=== PATIENT | female | born 1945 | race Caucasian/White ===

== ENCOUNTER 2017-12-26 14:00 | Outpatient (RCR) | payer MEDICARE, BC, SELFPAY ==
[2017-10-11 13:20] VITALS: BP 118/78; O2SAT 92; BMI 33.6
--- NOTE | 2017-10-11 15:25 | CR.IEVALNOTE ---
CR Initial Assessment Report CR Cardiac Rehab Initial Assessment Start: 10/11/17 13:19 DX: CHF Freq: Status: Active Protocol: Document 10/11/17 13:20 ZE (Rec: 10/11/17 13:58 [facility] [id number]) Cardiac Rehabilitation Exercise Risk Risk High % 15-20 AICD No Pacemaker No Heart Rhythm ATRIAL FIB Right Arm Blood Pressure (90/60-120/80 mmHg) 118/78 Blood Pressure Method Manual Cuff/Auscultation Left Arm Blood Pressure (90/60-120/80 mmHg) 118/78 Blood Pressure Method Manual Cuff/Auscultation Apical Resting Heart Rate: 54 Pulse Rhythm: Irregular Respiratory Effort Non-Labored Pulse Oximetry (91-100 %) 92 Comment: CPAP AT NIGHT WITH OXYGEN Cardiac Rehabilitation Nutrition Evaluation Recent Lipid Blood Test No Lipids Comment WILL REQUEST FROM [place] History of Diabetes No Cardiac Rehabilitation Weight Management Plan Height 170.18 cm Weight 97.522 kg Body Mass Index (BMI) 33.6 Girth Measurement (in inches) (cm) 48 Patient Goal(s) Lose 1-2 of Girth Lose 5-10 lbs Body Weight BMI Goal of 19-25 Vitamins & Supplements No Use None/Never Nutrition Evaluation Referral to Diabetes Education No Nurse/Patient Discussion Yes Diet Discussion PORTION CONTROL Patient Following Diet Plan No Patient's Nutritional Goals HAS LOST 20# RECENTLY STATES PROBABLY WATER WEIGHT Education Primary Language DIVEHI Transcript Clerk Required No Visual Difficutly None Visual Assist Glasses Education on Intake Short of Breath Lightheaded or Dizzy Musculoskeletal Pain Hx Hypertension No Goal of BP <130/80 Yes Medications Reconciled Yes Any Additional Comment WILL TALK TO DR. ERNANDEZ TOMORROW RE LISINOPRIL. HAS A DRY COUGH . CR Psychosocial Evaluation Goal FEELS A LITTLE DISCOURAGED ABOUT HER LOW EF. LOST HER 7 YEARS AGO STILL EMOTIONAL WHEN SHE TALKS ABOUT HIM. Identifies Stressors TRYING TO LOSE WEIGHT Psych Consult No Discussion with Patient Yes Psychotropic Medications No PHQ9 Score 4 HQ Scoring Scale 0-4 = None Situation LIVES AT HOME WITH CAT Employment Status Retired Occupation / Employer USE TO WORK IN [employer] Ready for Change Number +46 CR Psychosocial Eval Continued Sternotomy Incision N/A Graft Site & Incision N/A Heart Murmur NEGATIVE Lung Sounds CLEAR Edema NONE Stress Management Class Yes Heart Disease & Emotion Film Yes Readiness Cooperative Motivated Patient's Story 4 YEARS AGO WENT TO MD ABOUT WEAKNESS AND EDEMA. FOUND SHE WAS IN HEART FAILURE AT THAT TIME. SEEMED TO GET BETTER THEN SUDDENLY SEVERE SOB FOUND TO HAVE A LOW EF ON ECHO. SEVERAL WEEKS LATER CONTINUED TO HAVE LOW EF OF 20% DESPITE MEDS Treatment Prescribed for Individual Yes Needs No Treatment Change Yes: Please Continue with Cardiopulmonary Rehabilitation as Ordered Date 10/11/17 Document 10/11/17 15:10 CFS (Rec: 10/11/17 15:24 CFS [id number]) Cardiac Rehabilitation Exercise Fall Risk History of Falling (Immediate or Yes Previous) Secondary Diagnosis (More Than 2 Medical Yes Diagnoses) Ambulatory Aid None/bed rest/nurse assist IV/Heparin Lock No Gait/Transferring Normal/bedrest/immobile Mental Status Oriented to own ability Score Total 40 Risk Level Moderate Fall Risk Action Implement Moderate Fall Risk Precautions Comment Will start with saucer under physioball seated next to railing. Assistive Devices None Walker Activity Status Index 4.40 Home Exercise Yes Mode Comment: NuStep Duration Comment: 30 min Frequency Comment: 4x/wk Symptoms: Back Pain Joint Pain Joint Stiffness Joint Swelling Body Alignment Posture Good Posture Ambulation Assistive Device None Orthotic/Prosthetic Devices or Brace: No Comment L Shoulder decrease ROM, Mid back and Bilat knees arthritis Exercise TM METS 2.63 Angina with Exercise no Exercise Tolerance Good CR Pre Exercise Evaluation Orientation Self Pulse Check HONG PRE Scale Exercise Safety Equipment Orientation Warm Up/Cool Down Patient Short-term Goal(s) Increase stamina by being able to do the TM for full 20 min continuously in 12 sessions Patient Printing Specialist Goal(s) Decrease SOB so that she is able to return to doing trail walking ie. Faiza Pichardo in 24 sessions CR Exercises Prescription Exercise Duration (minutes) 20 METs (resistance level) 3 Frequency 2x/wk RPE 12-14 Exercise Duration (minutes) 20 METs (resistance level) 3 Frequency 1x/wk RPE 12-14 Exercise Speed (rpm) 50 Exercise Duration (minutes) 20 Frequency 1x/wk RPE 12-14 Pounds 3 Number of Reps 12 Number of Sets 2 Frequency 1x/wk RPE 12-14 Band Resistance 3 Number of Reps 12 Number of Sets 1 Frequency 1x/wk RPE 12-4
--- NOTE | 2017-11-24 15:30 | CR.EDUC ---
Current Diagnoses Heart failure, unspecified (11/24/17) Past Medical History (Last Updated 11/15/17 @ 23:07 by KATY Grant) Afib (Acute) Central sleep apnea (Chronic) Congestive heart failure (CHF) (Chronic) Insomnia, persistent (Chronic) Obstructive sleep apnea of adult (Chronic) Snoring (Chronic) Provider Summary Visit Care Team Role Provider Type Matthew Trotter MD Attending Provider Physician Family Provider Primary Care Provider Specialty: Family Practice Address: [address] [place] [address] [place], [facility] Email: [email or web address] Education Report CR Education Start: 10/11/17 13:19 Freq: Status: Active Protocol: Document 10/13/17 14:19 CHERYL (Rec: 10/13/17 14:19 CHERYL [id number]) CR EDUCATION Education pt intro and hx review Document 10/17/17 15:13 JCP (Rec: 10/17/17 15:14 JCP [id number]) CR EDUCATION Education DISCUSSED WHAT METS ARE AND HOW THAT IMPACTS HER HEART.JOSSY Document 10/19/17 15:44 JCP (Rec: 10/19/17 15:44 JCP [id number]) CR EDUCATION Education ANTI INFLAMMATORY FOODS AND MEDITATION Document 10/26/17 15:07 JCP (Rec: 10/26/17 15:07 JCP [id number]) CR EDUCATION Education MET WITH TRUCK LOADER OVERHEAD CRANE [address] Document 11/02/17 16:18 JCP (Rec: 11/02/17 16:18 JCP [id number]) CR EDUCATION Education MET WITH JUAN PABLO NEIL ON METS Document 11/03/17 14:39 JCP (Rec: 11/03/17 14:40 JCP [id number]) CR EDUCATION Education HAD ECHO YESTERDAY. EF 35% UP FROM 25%. Document 11/16/17 16:09 JCP (Rec: 11/16/17 16:09 JCP [id number]) CR EDUCATION Education MET WITH JACK CAGE RD
[2017-12-26 15:54] VITALS: BP 106/58; RESP 18; BMI 30.5
== END 2017-12-27 10:57 ==
LOC: CAR 14:00
PROVIDERS: Family Provider Family Medicine; PCP Family Medicine; Visit Provider Family Medicine
DX: I50.22 Chronic systolic (congestive) heart failure (principal); I50.9 Heart failure, unspecified
CPT/HCPCS: 93798

== ENCOUNTER → 2020-05-24 13:35 | Outpatient (CLI) | payer MEDICARE, BC, SELFPAY ==
--- NOTE | 2020-05-24 | DI.MG.S_ITS ---
BILATERAL DIGITAL SCREENING MAMMOGRAM 3D/2D WITH CAD: 05/24/2020 CLINICAL: Routine screening. Family history of breast cancer. Comparison is made to exams dated: 08/11/2015 mammogram, 06/09/2017 mammogram, and 07/12/2018 mammogram - outside location. The tissue of both breasts is predominantly fatty. Current study was also evaluated with a Computer Aided Detection (CAD) system. No significant masses, calcifications, or other findings are seen in either breast. There has been no significant interval change. IMPRESSION: NEGATIVE There is no mammographic evidence of malignancy. A 1 year screening mammogram is recommended. This exam was interpreted at Station ID: [id number]. NOTE: For mammograms, a report in lay terms will be sent to the patient. Approximately 15% of breast malignancies will not be visualized mammographically. In the management of a palpable breast mass, a negative mammogram must not discourage biopsy of a clinically suspicious lesion. Electronically Signed By: Shayne Kenny M.D., jr/maris:05/26/2020 09:54:01 letter sent: Normal Exam ACR BI-RADS Category 1: Negative 3341F
== END ==
PROVIDERS: Family Provider Family Medicine; PCP Family Medicine; Referring Provider Family Medicine; Visit Provider Family Medicine
DX: Z12.31 Encounter for screening mammogram for malignant neoplasm of breast (principal); Z80.3 Family history of malignant neoplasm of breast
CPT/HCPCS: 77063; 77067

== ENCOUNTER → 2022-04-27 11:56 | Outpatient (CLI) | payer MEDICARE, BC, SELFPAY ==
--- NOTE | 2022-04-27 11:58 | DI.MG.S_ITS ---
BILATERAL DIGITAL SCREENING MAMMOGRAM 3D/2D WITH CAD: 04/27/2022 CLINICAL: Routine screening. Family history of breast cancer. Comparison is made to exams dated: 05/24/2020 mammogram - [facility], 07/12/2018 mammogram, and 06/09/2017 mammogram - outside location. There are scattered areas of fibroglandular density in both breasts (category b / 25%-50% glandular tissue). Current study was also evaluated with a Computer Aided Detection (CAD) system. There are benign calcifications in both breasts. No significant masses, calcifications, or other findings are seen in either breast. There has been no significant interval change. IMPRESSION: BENIGN There is no mammographic evidence of malignancy. A 1 year screening mammogram is recommended. Based on the Tyrer Cuzick model (a risk assessment model) the patient's lifetime risk is 5.5% and her 10 year risk is 4.9%. According to the ACR, ACS, and NCCN guidelines, an annual breast MRI exam along with mammogram is recommended if the patient's lifetime risk is 20% or greater. This exam was interpreted at Station ID: [id number]. NOTE: For mammograms, a report in lay terms will be sent to the patient. Approximately 15% of breast malignancies will not be visualized mammographically. In the management of a palpable breast mass, a negative mammogram must not discourage biopsy of a clinically suspicious lesion. Electronically Signed By: Diaz khan/maris:04/27/2022 18:56:59 letter sent: Normal Exam ACR BI-RADS Category 2: Benign Finding(s) 3342F
== END ==
PROVIDERS: Family Provider Family Medicine; PCP Family Medicine; Referring Provider Family Medicine; Visit Provider Family Medicine
DX: Z78.0 Asymptomatic menopausal state (principal); Z12.31 Encounter for screening mammogram for malignant neoplasm of breast; Z80.3 Family history of malignant neoplasm of breast; Z13.820 Encounter for screening for osteoporosis; M85.851 Other specified disorders of bone density and structure, right thigh
CPT/HCPCS: 77063; 77067; 77080; 77081

== ENCOUNTER → 2023-12-02 09:57 | Outpatient (CLI) | payer MEDICARE, BC, SELFPAY ==
--- NOTE | 2023-12-02 09:59 | DI.MG.S_ITS ---
BILATERAL DIGITAL SCREENING MAMMOGRAM 3D/2D WITH CAD: 12/02/2023 CLINICAL: Routine screening. Family history of breast cancer. Comparison is made to exams dated: 04/27/2022 mammogram, 05/24/[address] mammogram - [facility], and 07/12/2018 mammogram - outside location. There are scattered areas of fibroglandular density in both breasts (category b / 25%-50% glandular tissue). Current study was also evaluated with a Computer Aided Detection (CAD) system. There are benign calcifications in both breasts. No significant masses, calcifications, or other findings are seen in either breast. There has been no significant interval change. IMPRESSION: BENIGN There is no mammographic evidence of malignancy. A 1 year screening mammogram is recommended. Based on the Tyrer Cuzick model (a risk assessment model) the patient's lifetime risk is 4.6% and her 10 year risk is 0.0%. According to the ACR, ACS, and NCCN guidelines, an annual breast MRI exam along with mammogram is recommended if the patient's lifetime risk is 20% or greater. This exam was interpreted at Station ID: [id number]. NOTE: For mammograms, a report in lay terms will be sent to the patient. Approximately 15% of breast malignancies will not be visualized mammographically. In the management of a palpable breast mass, a negative mammogram must not discourage biopsy of a clinically suspicious lesion. Electronically Signed By: Lindsay campbell/maris:12/02/2023 14:51:55 letter sent: Normal Exam ACR BI-RADS Category 2: Benign Finding(s) 3342F
== END ==
PROVIDERS: Family Provider Family Medicine; PCP Family Medicine; Referring Provider Family Medicine; Visit Provider Family Medicine
DX: Z12.31 Encounter for screening mammogram for malignant neoplasm of breast (principal); Z80.3 Family history of malignant neoplasm of breast
CPT/HCPCS: 77063; 77067

== ENCOUNTER → 2023-12-15 08:03 | Outpatient (CLI) | payer MEDICARE, BC, SELFPAY ==
[2023-12-15 09:26] LABS: Add Manual Diff / Slide Review NO; Basophils Absolute Auto 0 /uL (0-100); Basophils Percent Auto 0.7 % (0-2); Eosinophils Absolute Auto 400 /uL (0-450); Eosinophils Percent Auto 6.5 % (2-4); Hematocrit 38.1 % (36-46); Hemoglobin 13.4 g/dL (12.0-16.0); Lymphocytes Absolute Auto 2100 /uL (1100-4500); Lymphocytes Percent Auto 32.8 % (25-40); Mean Corpuscular HGB Conc 35.3 % (30-36); Mean Corpuscular Hemoglobin 31.4 PG (26-34); Mean Corpuscular Volume 89.1 fL (80-100); Monocytes Absolute Auto 600 /uL (0-900); Monocytes Percent Auto 8.7 % (3-14); Neutrophils Absolute Auto 3300 /uL (1500-7000); Neutrophils Percent Auto 51.3 % (50-75); Platelet Count 182 X10^3/uL (150-400); Red Blood Cell Count 4.27 X10^6/uL (4.0-5.2); Red Cell Distribution Width 14.8 % (11.6-14.8); White Blood Cell Count 6.4 X10^3/uL (4.5-11.0)
[2023-12-15 10:37] LABS: BUN Creatinine Ratio 21.4 (6-22); Blood Urea Nitrogen 15 mg/dL (7-17); Calcium 9.3 mg/dL (8.4-10.2); Carbon Dioxide 25 mmol/L (22-32); Chloride 96 mmol/L (98-107); Estimated Glomerular Filt Rate > 60 mL/min (>60); Glucose 114 mg/dL (80-110); HEMOLYSIS < 15 (0-50); Potassium 4.7 mmol/L (3.4-5.1); Sodium 128 mmol/L (137-145)
== END ==
LOC: LAB 08:04
PROVIDERS: Family Provider Family Medicine; PCP Family Medicine; Referring Provider Internal Medicine; Visit Provider Internal Medicine
DX: I48.0 Paroxysmal atrial fibrillation (principal)
CPT/HCPCS: 36415; 80048; 85025

== ENCOUNTER → 2023-12-26 06:49 | Outpatient (CLI) | payer MEDICARE, BC, SELFPAY ==
--- NOTE | 2023-12-26 06:51 | DI.ECHO.S_ITS ---
[facility] : : [address] : : [place] : : [id number] : : Phone: [phone] Echocardiogram Report + + :Name: LIANA BLACKMAN Study Date: 12/26/2023 Height: 69 in : :[facility] ReadingLocation: Weight: 195 lb : : Gender: Female BSA: 2.0 m2 : :: 1945 Age: 78 yrs BP: 106/75 mmHg: :Reason For Study: CHRONIC SYSTOLIC HEART FAILURE : :Ordering Physician: JEN FLAHERTY Performed By: Shayne Chester : :Referring: JEN FLAHERTY : + + Interpretation Summary PT DECLINED CONTRAST 1. Normal LV contractility with EF > 55%. No WMA. Mild cLVH. Unable to comment on diastolic function. 2. Normal RV contractility. 3. Severe LAE. 4. No significant valvular abnormalities. 5. No obvious intracardiac shunts. 6. No obvious intracardiac masses/thrombi. 7. No hemodynamically significant pericardial effusion. 8. Low right sided filling pressures. 9. Mildly dilated ascending aorta and root without obvious disection Conclusion: Normal biventricular systolic function without significant valvular abnormalities. Procedure: A two-dimensional transthoracic echocardiogram with color flow and Doppler was performed. The study quality was technically adequate. There is no prior echocardiogram noted for this patient. The patient was in normal sinus rhythm during the exam. Left Ventricle: The left ventricle is normal in size. Left ventricular wall thickness is mildly increased. There is no ventricular septal defect visualized. The ejection fraction is estimated to be 55-60%. There are no focal wall motion abnormalities. Right Ventricle: The right ventricle is normal in size and function. The right ventricular systolic function is normal. Atria: The left atrium is severely dilated. Right atrial size is normal. There is no Doppler evidence for an atrial septal defect. Mitral Valve: The mitral valve is normal in structure and function. There is trace mitral regurgitation. Aortic Valve: The aortic valve is trileaflet. The aortic valve opens well. No aortic regurgitation is present. Tricuspid Valve: The tricuspid valve is normal in structure and function. There is trace tricuspid regurgitation. The right ventricular systolic pressure is estimated to be at least 20 mmHg based on an estimated right atrial pressure of 3 mm Hg. Pulmonic Valve: The pulmonic valve is not well seen, but is grossly normal. There is trace pulmonic regurgitation. Great Vessels: The aortic root is mildly dilated. The ascending aorta is mildly enlarged. The aortic arch is normal in size. The pulmonary artery is normal size. The IVC is of normal diameter and collapses greater than 50% with a sniff. This suggests a low right atrial pressure of 3 mm Hg. Pericardium/ Pleura There is no pericardial effusion. There is no pleural effusion. MMode/2D Measurements & Calculations LVIDd: 5.9 cm LVOT diam: 2.5 cm LVIDs: 4.0 cm Ao root diam: 3.8 cm FS: 31.4 % asc Aorta Diam: 3.9 cm EPSS: 1.3 cm Ao Arch Diam (Prox Trans): 2.5 cm IVSd: 1.1 cm LVPWd: 1.1 cm LV oneal. diameter/BSA (cm/m^2): 2.9 LV sys. diameter/BSA (cm/m^2): 2.0 LA A2 area: 29.0 cm2 RA long axis: 4.8 cm LA A4 area: 33.4 cm2 RA area: 15.5 cm2 LA length (vol): 7.1 cm RA vol: 42.4 ml LA vol: 115.4 ml RA : 20.8 ml/m2 LA vol index: 56.5 ml/m2 IVC diam: 1.5 cm RVD1 (basal): 3.5 cm RVD2 (mid): 2.6 cm TAPSE: 2.2 cm Doppler Measurements & Calculations Ao V2 max: 106.9 cm/sec LVOT Max Shelton: 53.4 cm/sec Ao V2 mean: 81.1 cm/sec LV V1 max P.1 mmHg Ao max P.6 mmHg LV V1 VTI: 13.2 cm Ao mean P.8 mmHg KACY(I,D): 2.7 cm2 Ao V2 VTI: 22.8 cm KACY(V,D): 2.4 cm2 sev ratio: 0.58 KACY indexed to BSA (cm^2/m^2): 1.3 MV E max shelton: 47.1 cm/sec TR max shelton: 205.4 cm/sec MV A max shelton: 34.9 cm/sec TR max P.9 mmHg MV E/A: 1.4 PA V2 max: 63.2 cm/sec Med Peak E' Shelton: 4.5 cm/sec PA V2 mean: 44.2 cm/sec E/E' med: 10.6 PA mean P.90 mmHg Lat Peak E' Shelton: 9.5 cm/sec PA pr(Accel): 22.5 mmHg E/E' lat: 5.0 E/e' average: 7.8 MV dec time: 0.37 sec SV(LVOT): 62.6 ml Reading Physician:
== END ==
LOC: ECHO 06:50
PROVIDERS: Family Provider Family Medicine; PCP Family Medicine; Referring Provider Internal Medicine; Visit Provider Internal Medicine
DX: I50.22 Chronic systolic (congestive) heart failure (principal); I77.810 Thoracic aortic ectasia; I77.89 Other specified disorders of arteries and arterioles
CPT/HCPCS: 93306

== ENCOUNTER 2024-05-31 06:56 | Inpatient (IN) | payer MEDICARE, BC, SELFPAY ==
[2024-05-31] VITALS (15 sets, daily range): BP systolic 96–128; BP diastolic 55–83; PULSE 61–109; RESP 14–17; TEMP 36–37; O2SAT 91–100; BMI 29.1
--- NOTE | 2024-05-31 07:25 | EKG_ITS ---
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
[2024-05-31 07:51] LABS: Add Manual Diff / Slide Review NO; Basophils Absolute Auto 0 /uL (0-100); Basophils Percent Auto 0.8 % (0-2); Eosinophils Absolute Auto 100 /uL (0-450); Eosinophils Percent Auto 2.3 % (2-4); Hemoglobin 13.5 g/dL (12.0-16.0); Lymphocytes Absolute Auto 1400 /uL (1100-4500); Lymphocytes Percent Auto 23.6 % (25-40); Mean Corpuscular HGB Conc 34.5 % (30-36); Mean Corpuscular Hemoglobin 30.3 PG (26-34); Mean Corpuscular Volume 87.9 fL (80-100); Monocytes Absolute Auto 300 /uL (0-900); Monocytes Percent Auto 4.8 % (3-14); Neutrophils Absolute Auto 4200 /uL (1500-7000); Neutrophils Percent Auto 68.5 % (50-75); Platelet Count 178 X10^3/uL (150-400); Red Blood Cell Count 4.44 X10^6/uL (4.0-5.2); Red Cell Distribution Width 14.8 % (11.6-14.8); White Blood Cell Count 6.1 X10^3/uL (4.5-11.0)
[2024-05-31 08:01] LABS: Alanine Aminotransferase 17 IU/L (<35); Albumin 4.4 g/dL (3.5-5.0); Albumin Globulin Ratio 1.8 (1.0-2.8); Alkaline Phosphatase 81 U/L (38-126); Aspartate Aminotransferase 22 IU/L (14-36); BUN Creatinine Ratio 23.5 (6-22); Bilirubin Total 1.2 mg/dL (0.2-1.3); Blood Urea Nitrogen 16 mg/dL (7-17); Calcium 9.4 mg/dL (8.4-10.2); Carbon Dioxide 25 mmol/L (22-32); Chloride 99 mmol/L (98-107); Estimated Glomerular Filt Rate > 60 mL/min (>60); Globulin 2.5 g/dL (1.7-4.1); Glucose 144 mg/dL (80-110); HEMOLYSIS < 15 (0-50); Lipase 114 U/L (23-300); Sodium 133 mmol/L (137-145); Total Protein 6.9 g/dL (6.3-8.2)
--- NOTE | 2024-05-31 08:04 | ED_ITS ---
HPI - Abdominal Pain General Chief Complaint: Abdominal Pain Stated Complaint: Severe stomach pain Time Seen by Provider: 05/31/24 07:47 Source: patient Mode of arrival: Ambulatory History of Present Illness HPI narrative: patient drove self here. Complains of sudden onset 7 hours ago right lower quadrant pain did have some upper abdominal pain but now has settled down to right lower quadrant pain. No prior history appendectomy. No prior history of kidney stones. Denies denies any chest pain. Pain radiates to the right lower back. No diaphoresis. No urinary complaints. Related Data Home Medications Medication Instructions Recorded Confirmed apixaban 5 mg tablet (Eliquis) 5 mg PO BID 11/15/17 05/31/24 spironolactone 25 mg tablet 25 mg PO DAILY 11/15/17 05/31/24 furosemide 80 mg tablet 40 mg PO DAILY 10/18/18 05/31/24 Resmed AirSense CPAP #1 ea 11/15/19 05/31/24 metformin 500 mg tablet 500 mg PO BID 04/28/21 05/31/24 metoprolol succinate 25 mg PO DAILY 05/31/24 05/31/24 omeprazole 40 mg capsule,delayed 40 mg PO BID 05/31/24 05/31/24 release rosuvastatin 5 mg PO DAILY 05/31/24 05/31/24 sacubitril 24 mg-valsartan 26 mg 1 tab PO DAILY 05/31/24 05/31/24 tablet (Entresto) semaglutide 0.25 mg or 0.5 mg (2 0.25 mg SUBCUT QWEEK 05/31/24 05/31/24 mg/3 mL) subcutaneous pen injector (Ozempic) Previous Rx's Medication Instructions Recorded Oxygen Concentrator #1 ea 10/03/17 zolpidem 5 mg tablet See Rx Instructions .Route 10/13/21 .COMPLEX #30 tabs Allergies Allergy/AdvReac Type Severity Reaction Status Date / Time No Known Drug Allergies Allergy Verified 05/31/24 07:28 Review of Systems Review of Systems Narrative: GENERAL: Negative chills, fatigue, malaise, fever, sweats. HEENT: Negative sinus pain, ear pain, sore throat RESPIRATORY: Negative dyspnea, cough CARDIOVASCULAR: Negative chest pain, palpitations GASTROINTESTINAL: Positivenausea, vomiting, abdominal pain : Negative dysuria, frequency, hematuria MUSCULOSKELETAL: Negative muscle or bony pain SKIN: Negative rash, skin lesions NEUROLOGIC: Negative weakness, numbness ROS Unobtainable: All systems reviewed & are unremarkable except as noted in HPI and below Patient History Medical History Afib Central sleep apnea Congestive heart failure (CHF) Hypnotic dependence with current use Obstructive sleep apnea of adult Primary insomnia Snoring Social History Smoking Status: Never smoker Smoking Status: Never smoker Exam Narrative Exam Narrative: GENERAL: in no distress, not toxic not dyspneic HEAD: Normocephalic. EYES: Pupils equal round ENT: Mucous membranes moist. NECK: Trachea midline. CARDIOVASCULAR: Regular rate and rhythm RESPIRATORY: Clear to auscultation. Breath sounds equal bilaterally. No wheezes, rales, or rhonchi. GASTROINTESTINAL: Abdomen soft, reproducible right lower quadrant tenderness but no McBurney point tenderness. No guarding rebound or peritoneal signs no pain out of portion exam. Bowel sounds are present. No CVA tenderness EXTREMITIES: No gross deformities. BACK: No flank tenderness. NEURO: AOx4. Clear speech SKIN: Warm and dry PSYCH: Not anxious, is cooperative Initial Vital Signs Initial Vital Signs: Vital Signs Temperature 97.8 F 05/31/24 07:20 Pulse Rate 74 05/31/24 07:20 Respiratory Rate 16 05/31/24 07:20 Blood Pressure 116/59 L 05/31/24 07:20 Pulse Oximetry 97 05/31/24 07:20 Oxygen Delivery Method Room Air 05/31/24 07:20 Course Orders Ordered: ED Orders 05/31/24 07:25 EKG-12 Lead Stat 05/31/24 07:32 Complete Blood Count AUTO DIFF Stat Comprehensive Metabolic Panel Stat Lipase Stat 05/31/24 08:03 CT abdomen pelvis w con Stat 05/31/24 08:45 Ictotest Urine Stat Bisacodyl (Bisacodyl 10 Mg Supp) 10 mg [place] DAILY PRN PRN Reason: Constipation Docusate Sodium (Docusate 100 Mg Capsule) 100 mg PO BID LUIS FERNANDO Last Admin: 05/31/24 12:00 Dose: 100 mg Documented By: ANA Dextrose/Sodium Chloride (Dextrose 5%-0.45% Ns) 1,000 mls @ 100 mls/hr IV CONT [facility] Last Admin: 05/31/24 12:00 Dose: 100 mls/hr Documented By: ANA Ketorolac Tromethamine (Ketorolac 30 Mg/Ml Vial) 15 mg IV Q6H PRN PRN Reason: Pain, Moderate (4-6) Stop: 06/05/24 13:53 Last Admin: 05/31/24 14:02 Dose: 15 mg Documented By: ANA Naloxone HCl (Naloxone 0.4 Mg/Ml Vial) 0.2 mg IV Q2MIN PRN PRN Reason: Opiate Reversal Ondansetron HCl (Ondansetron 4 Mg/2 Ml Inj) 4 mg IV NOW PRN PRN Reason: Nausea And Vomiting Last Admin: 05/31/24 09:55 Dose: 4 mg Documented By: [facility] Ondansetron HCl (Ondansetron 4 Mg Odt) 4 mg PO NOW PRN PRN Reason: Nausea And Vomiting Ondansetron HCl (Ondansetron 4 Mg/2 Ml Inj) 4 mg IV Q8HR PRN PRN Reason: Nausea And Vomiting Ondansetron HCl (Ondansetron 4 Mg Odt) 4 mg PO Q8HR PRN PRN Reason: Nausea And Vomiting Discontinued Medications Ketorolac Tromethamine (Ketorolac 30 Mg/Ml Vial) 15 mg IV Q6H [facility] Stop: 06/05/24 13:53 Morphine Sulfate (Morphine 4 Mg/Ml Inj) 4 mg IV NOW ONE Stop: 05/31/24 09:51 Last Admin: 05/31/24 09:54 Dose: 4 mg Documented By: [facility] Sodium Chloride (Sodium Chloride 0.9% Flush) 50 ml IV NOW ONE Stop: 05/31/24 08:34 Last Admin: 05/31/24 09:09 Dose: 50 ml Documented By: [facility] Vital Signs Vital signs: Vital Signs - 8 hr 05/31/24 07:20 Temperature 97.8 F Pulse Rate 74 Respiratory Rate 16 Blood Pressure 116/59 L Pulse Oximetry 97 Oxygen Delivery Method Room Air MDM - Abdominal Pain Lab Data 05/31/24 07:32 05/31/24 07:32 Labs: Lab Results 05/31/24 05/31/24 05/31/24 Range/Units 07:12 07:32 08:45 WBC 6.1 (4.5-11.0) X10^3/uL RBC 4.44 (4.0-5.2) X10^6/uL Hgb 13.5 (12.0-16.0) g/dL Hct 39.0 (36-46) % MCV 87.9 (80-100) fL MCH 30.3 (26-34) PG MCHC 34.5 (30-36) % RDW 14.8 (11.6-14.8) % Plt Count 178 (150-400) X10^3/uL Neut % (Auto) 68.5 (50-75) % Lymph % (Auto) 23.6 L (25-40) % [place] % (Auto) 4.8 (3-14) % Eos % (Auto) 2.3 (2-4) % Baso % (Auto) 0.8 (0-2) % Neut # (Auto) 4200 (2156-7228) /uL Lymph # (Auto) 1400 (6054-8977) /uL [place] # (Auto) 300 (0-900) /uL Eos # (Auto) 100 (0-450) /uL Baso # (Auto) 0 (0-100) /uL PT 14.4 H (9.4-12.5) SECONDS INR 1.3 (0.9-1.3) APTT 39 H (25.1-36.5) SECONDS Sodium 133 L (137-145) mmol/L Potassium 4.0 (3.4-5.1) mmol/L Chloride 99 (98-107) mmol/L Carbon Dioxide 25 (22-32) mmol/L BUN 16 (7-17) mg/dL Creatinine 0.68 (0.52-1.04) mg/dL Estimated GFR > 60 (>60) mL/min BUN/Creatinine Ratio 23.5 H (6-22) Glucose 144 H (80-110) mg/dL Calcium 9.4 (8.4-10.2) mg/dL Total Bilirubin 1.2 (0.2-1.3) mg/dL AST 22 (14-36) IU/L ALT 17 (<35) IU/L Alkaline Phosphatase 81 (38-126) U/L Total Protein 6.9 (6.3-8.2) g/dL Albumin 4.4 (3.5-5.0) g/dL Globulin 2.5 (1.7-4.1) g/dL Albumin/Globulin Ratio 1.8 (1.0-2.8) Lipase 114 (23-300) U/L Ur Bilirubin Confirm Negative (Negative) Point of care testing: Urine Dip Bedside Urine Glucose Negative Bedside Urine Bilirubin + 1 Bedside Urine Ketone - Negative Urine Specific [place] 1.010 Bedside Urine Occult Blood - Negative Bedside Urine pH 8.0 Bedside Urine Protein - Negative Bedside Urine Urobilinogen 1+ 2mg Bedside Urine Nitrite - Negative Bedside Urine Leukocytes - Negative Esterase Imaging Data CT scan - abdomen/pelvis: Radiologist's Impression: [address] [address] [address] Scan Report Signed Patient: Suri Zeng MR#: [id number] : 1945 Acct:[id number] Age/Sex: 78 / F Date of Service: 05/31/24 Loc: ED Accession Number: [id number] Procedure: CT abdomen pelvis w con Ordering Provider: Suhas Tamez MD PROCEDURE: CT ABDOMEN PELVIS W CON INDICATIONS: right side pain TECHNIQUE: After the administration of intravenous contrast, axial sections acquired from the lung bases to the pubic symphysis. Coronal and sagittal reformats were performed. For radiation dose reduction, the following was used: automated exposure control, adjustment of mA and/or kV according to patient size. COMPARISON: None. FINDINGS: Image quality: Diagnostic. Lower Chest: Mild bronchiectasis at the lung bases. There is mild streaky opacity which has the appearance of atelectasis. No pleural effusion. ABDOMEN: Liver: No solid mass. Gallbladder: No radiopaque gallstones or wall thickening. Biliary ducts: No biliary dilation. Pancreas: No ductal dilation. Spleen: Size is within normal limits. Adrenal Glands: No adrenal nodules. Kidneys and Ureters: No hydronephrosis. No solid mass. No complex renal cystic lesion which requires follow up. Stomach and Bowel: There are dilated loops of small bowel in the right lower quadrant. There is bowel wall thickening and adjacent mesenteric edema. Suspected transition point in the right lower quadrant, (3/46). There is fluid tracking in the pericolic gutter. There is trace fluid in the pelvis. There is no free air. The adjacent colon is not dilated. The appendix is partially visualized and is not dilated. There additional dilated loops of small bowel in the mid abdomen. The stomach is not dilated. The duodenum is not dilated. Diverticulosis. No diverticulitis. Peritoneum: Mild free fluid in the right abdomen and pelvis as described above. No pneumoperitoneum. Ventral Wall: No significant ventral hernia. Abdominal Nodes: No retroperitoneal or mesenteric adenopathy by size criteria. Vessels: Aorta and inferior vena cava are normal in size. PELVIS: Pelvic Organs: Anteverted uterus. Bladder: No bladder wall thickening. Pelvic Nodes: No enlarged lymph nodes. Miscellaneous: No inguinal hernias are seen. Bones: No aggressive osseous abnormality. There is anterolisthesis of L5 on S1 measuring 1.1 cm. Bilateral L5 pars defects. Scoliosis. Multilevel DDD. Mild T10 compression fracture. IMPRESSION: Small bowel obstruction with transition point suspected in the right lower quadrant. This could represent a closed loop bowel obstruction. There is mesenteric edema and free fluid. No pneumoperitoneum or abscess. Comment: Findings were discussed with Suhas Tamez at time of dictation. Dictated by: Be Artis M.D. on 05/31/2024 at 9:01 Approved by: Be Artis M.D. on 05/31/2024 at 9:16 [facility] Narrative Medical decision making narrative: patient drove self here. Complains of sudden onset 7 hours ago right lower quadrant pain did have some upper abdominal pain but now has settled down to right lower quadrant pain. No prior history appendectomy. No prior history of kidney stones. Denies denies any chest pain. Pain radiates to the right lower back. No diaphoresis. No urinary complaints. After history and exam , pain is controlled at this time. Patient does not want anything for pain. CBC CMP urinalysis CT abdomen pelvis ordered. Nausea is controlled. EKG [facility] Medical records reviewed: No recent visit for this complaint Differential considered: Includes but not limited to appendicitis pyelonephritis kidney stone ureteral stone bowel obstruction Lab Test results independently reviewed as above. Pertinent findings: WBC 6.1 hemoglobin 13.5 sodium 133 potassium 4.0 BUN 16 creatinine 0.68 glucose 144 AST 22 ALT 17 Independently reviewed EKG junctional rhythm rate [address] elevation or depression Imaging studies independently reviewed: CT abdomen pelvis small bowel obstruction noted Consultations: 9:17 a.m.. Spoke with General surgery, dr still, she will see patient in consult. Admit to primary care. 9:25 a.m.. Spoke with primary care on-call for Dr. Trotter, I spoke with Dr Emery, he will see patient for admission Treatments: normal saline, Zofran Re-evaluations: 9:20 a.m.. Updated patient results and diagnosis and she does understand need for admission for bowel obstruction, no NG tube indicated this time. Reviewed with general surgeon. Discussion: appropriate for admission for bowel obstruction general surgery has been contacted, primary care will admit. Diagnosis: Bowel obstruction Discharge Plan Departure Patient Disposition: Admitted as Observation Clinical Impression: Small bowel obstruction Admit Date/Time: 05/31/24 09:22 Admit Provider: Kenny Emery
[2024-05-31] MEDS: SODIUM CHLORIDE 0.9% FLUSH 50 ML IV (09:09)
[2024-05-31 09:19] LABS: Ictotest Urine Negative (Negative)
[2024-05-31 09:29] LABS: INR 1.3 (0.9-1.3); Prothrombin Time 14.4 SECONDS (9.4-12.5)
[2024-05-31 09:32] LABS: PTT Partial Thromboplastin Tim 39 SECONDS (25.1-36.5)
[2024-05-31] MEDS: MORPHINE 4 MG/ML INJ IV (09:54)
[2024-05-31] MEDS: ONDANSETRON 4 MG/2 ML INJ IV (09:55)
--- NOTE | 2024-05-31 11:04 | PM.HP.1 ---
History of Present Illness History of Present Illness Date Patient Seen: 05/31/24 Time Patient Seen: 10:30 Chief complaint: Severe stomach pain Narrative: CC: [facility] PT with new sudden symptoms of epigastric bandlike pain and soreness in RLQ today - seen in ED evaluated by surgery they think [facility] will admit keep NPO for now. Pain controlled with morphine from ED about 3/10 right now. Pt reports feels marion hungry. Vitals stable nothing to eat today remains NPO. Discussed with surgery Dr. Fischer they plan to take to OR tonight. [facility] Medical History Afib Central sleep apnea Congestive heart failure (CHF) Hypnotic dependence with current use Obstructive sleep apnea of adult Primary insomnia Snoring Social History Smoking Status: Never smoker Meds Home Medications and Allergies Home Medications Medication Instructions Recorded Confirmed Type Oxygen Concentrator #1 ea 10/03/17 05/31/24 Rx apixaban 5 mg tablet (Eliquis) 5 mg PO BID 11/15/17 05/31/24 History spironolactone 25 mg tablet 25 mg PO DAILY 11/15/17 05/31/24 History furosemide 80 mg tablet 40 mg PO DAILY 10/18/18 05/31/24 History Resmed AirSense CPAP #1 ea 11/15/19 05/31/24 History metformin 500 mg tablet 500 mg PO BID 04/28/21 05/31/24 History zolpidem 5 mg tablet See Rx Instructions .Route 10/13/21 05/31/24 Rx .COMPLEX #30 tabs metoprolol succinate 25 mg PO DAILY 05/31/24 05/31/24 History omeprazole 40 mg capsule,delayed 40 mg PO BID 05/31/24 05/31/24 History release rosuvastatin 5 mg PO DAILY 05/31/24 05/31/24 History sacubitril 24 mg-valsartan 26 mg 1 tab PO DAILY 05/31/24 05/31/24 History tablet (Entresto) semaglutide 0.25 mg or 0.5 mg (2 0.25 mg SUBCUT QWEEK 05/31/24 05/31/24 History mg/3 mL) subcutaneous pen injector (Ozempic) Allergies Allergy/AdvReac Type Severity Reaction Status Date / Time No Known Drug Allergies Allergy Verified 05/31/24 07:28 Review of Systems Review of Systems Narrative: all systems reviewed and negative except as otherwise noted in HPI. Exam Vital Signs (past 8 hours): - 05/31/24 07:20 05/31/24 09:33 05/31/24 09:33 Temperature 97.8 F Pulse Rate 74 71 Respiratory Rate 16 Blood Pressure 116/59 L 111/63 Pulse Oximetry 97 100 Oxygen Delivery Method Room Air 05/31/24 10:00 05/31/24 10:03 05/31/24 10:04 Temperature Pulse Rate 74 Respiratory Rate Blood Pressure 117/70 Pulse Oximetry 98 Oxygen Delivery Method Room Air 05/31/24 10:04 05/31/24 10:30 Temperature Pulse Rate 74 70 Respiratory Rate Blood Pressure Pulse Oximetry 99 98 Oxygen Delivery Method Oxygen Delivery Method Room Air Narrative Exam Narrative: resting comfortably in chair Const Other: well developed well nourished Resp Other: grossly clear to auscultation bilaterally Cardio Other: regular rate s1/s2 no pedal edema GI Other: distended tender in LRQ with tinkling bowel sounds Neuro Other: alert awake fully oriented moving all limbs equally Objective Labs 05/31/24 07:32 05/31/24 07:32 Labs: Laboratory Results - last 24 hr 05/31/24 05/31/24 05/31/24 07:12 07:32 08:45 WBC 6.1 RBC 4.44 Hgb 13.5 Hct 39.0 MCV 87.9 MCH 30.3 MCHC 34.5 RDW 14.8 Plt Count 178 Neut % (Auto) 68.5 Lymph % (Auto) 23.6 L [place] % (Auto) 4.8 Eos % (Auto) 2.3 Baso % (Auto) 0.8 Neut # (Auto) 4200 Lymph # (Auto) 1400 [place] # (Auto) 300 Eos # (Auto) 100 Baso # (Auto) 0 PT 14.4 H INR 1.3 APTT 39 H Sodium 133 L Potassium 4.0 Chloride 99 Carbon Dioxide 25 BUN 16 Creatinine 0.68 Estimated GFR > 60 BUN/Creatinine Ratio 23.5 H Glucose 144 H Calcium 9.4 Total Bilirubin 1.2 AST 22 ALT 17 Alkaline Phosphatase 81 Total Protein 6.9 Albumin 4.4 Globulin 2.5 Albumin/Globulin Ratio 1.8 Lipase 114 Ur Bilirubin Confirm Negative Assessment & Plan Assessment & Plan narrative: #Small bowel obstruction following along with surgery NPO for now anticipate OR - december EF 50% #NIDDM stable on metformin takes ozempic also- resume metformin once taking po #essential hypertension vitals are stable continue home meds once taking PO #atrial fibrillation rate controlled takes metoprolol and eliquis at baseline #hyperlipidemia stable continue statins #insomnia prn ambien #GERD stable continue home PPI when taking PO Dispo: to OR with Dr. Fischer, admit inpt PCP: Rose Marie Code: full diet: NPO for surgery MDM: friend Palmira Holly [phone] Time-Based Coding :: [TOTAL MINUTES] spent with patient and on the chart (including review of chart, obtaining history, exam, reviewing outside data, placing orders, documenting exam and treatment plan, and counseling patient) on [DATE].
[2024-05-31] MEDS: DOCUSATE 100 MG CAPSULE PO (12:00)
[2024-05-31] MEDS: DEXTROSE 5%-0.45% NS 1,000 ML 100 ML IV (12:00)
[2024-05-31] MEDS: KETOROLAC 30 MG/ML VIAL 15 MG IV (14:02)
--- NOTE | 2024-05-31 14:28 | PM.CN.IH.1 ---
History of Present Illness Consult details Date Patient Seen: 05/31/24 Time Patient Seen: 10:18 Chief complaint: Severe stomach pain Reason for consult: Closed loop small bowel obstruction Requesting provider: Suhas Tamez Narrative: This is a 78-year-old woman with a past medical history of hypertension, CHF, type 2 diabetes on Ozempic, EMILY on CPAP who presents to the hospital with severe onset of right lower quadrant abdominal pain. Patient states that the pain woke her up at 1:00 a.m.. The pain was radiating to her back and rated at a 10/10. The pain is colicky in nature. Throughout the day today after receiving pain medication and having an episode of emesis, patient states that the pain has been tolerable with the IV pain medication. Patient says that pressing on the abdomen as well as the alma to the hospital made the pain worse. Patient denies any symptoms similar to this in the past. In regards to her surgical history, patient states that she underwent surgery approximately 11 years ago in [place]. Patient states that they went in and did a biopsy on her left lower quadrant. Patient is unsure of the diagnosis postoperatively. Denies any malignancy though. Meds Home Medications and Allergies Home Medications Medication Instructions Recorded Confirmed Type Oxygen Concentrator #1 ea 10/03/17 05/31/24 Rx apixaban 5 mg tablet (Eliquis) 5 mg PO BID 11/15/17 05/31/24 History spironolactone 25 mg tablet 25 mg PO DAILY 11/15/17 05/31/24 History furosemide 80 mg tablet 40 mg PO DAILY 10/18/18 05/31/24 History Resmed AirSense CPAP #1 ea 11/15/19 05/31/24 History metformin 500 mg tablet 500 mg PO BID 04/28/21 05/31/24 History zolpidem 5 mg tablet See Rx Instructions .Route 10/13/21 05/31/24 Rx .COMPLEX #30 tabs metoprolol succinate 25 mg PO DAILY 05/31/24 05/31/24 History omeprazole 40 mg capsule,delayed 40 mg PO BID 05/31/24 05/31/24 History release rosuvastatin 5 mg PO DAILY 05/31/24 05/31/24 History sacubitril 24 mg-valsartan 26 mg 1 tab PO DAILY 05/31/24 05/31/24 History tablet (Entresto) semaglutide 0.25 mg or 0.5 mg (2 0.25 mg SUBCUT QWEEK 05/31/24 05/31/24 History mg/3 mL) subcutaneous pen injector (Ozempic) Allergies Allergy/AdvReac Type Severity Reaction Status Date / Time No Known Drug Allergies Allergy Verified 05/31/24 07:28 Review of Systems Constitutional Constitutional: Denies chills, Denies fatigue and Denies fever(s) Eyes Eyes: Denies blurry vision and Denies irritation ENT Ears, Nose, Mouth, and Throat: No dysphagia and No dizziness Cardiovascular Cardiovascular: Denies chest pain with activity, Reports irregular heart rhythm, Denies dyspnea and Denies dyspnea on exertion Respiratory Respiratory: Denies hemoptysis, Denies dyspnea and Denies dyspnea on exertion Gastrointestinal Gastrointestinal: Reports abdominal pain, Reports bloating and Denies dysphagia Musculoskeletal Musculoskeletal: Reports system reviewed and no additional complaints, except as documented and Denies abnormal gait Integumentary/Breasts Skin/Breast: Reports system reviewed and no additional complaints, except as documented and Denies rash Neurologic Neurologic: Denies abnormal gait, Denies behavioral changes and Denies dizziness Psychiatric Psychiatric: Denies behavioral changes, Denies hopelessness and Denies irritability Endocrine Endocrine: Denies fatigue, Denies polydipsia and Denies polyuria Hematologic/Lymphatic Hematologic/Lymphatic: Reports system reviewed and no additional complaints, except as documented Allergic/Immunologic Allergic/Immunologic: Reports system reviewed and no additional complaints, except as documented Exam Vital Signs (past 8 hours): - 05/31/24 07:20 05/31/24 09:33 05/31/24 09:33 Temperature 97.8 F Pulse Rate 74 71 Respiratory Rate 16 Blood Pressure 116/59 L 111/63 Pulse Oximetry 97 100 Oxygen Delivery Method Room Air 05/31/24 10:00 05/31/24 10:03 05/31/24 10:04 Temperature Pulse Rate 74 Respiratory Rate Blood Pressure 117/70 Pulse Oximetry 98 Oxygen Delivery Method Room Air 05/31/24 10:04 05/31/24 10:30 05/31/24 11:30 Temperature 97.2 F L Pulse Rate 74 70 78 Respiratory Rate 15 Blood Pressure 98/55 L Pulse Oximetry 99 98 96 Oxygen Delivery Method Oxygen Delivery Method Room Air Const General: cooperative and healthy appearing [facility] Head: normal to inspection, normocephalic and atraumatic Nose: external nose normal Eyes General: appearance normal, both eyes and all related structures Neck Neck: normal visual inspection and full ROM Chest Chest: normal inspection of the chest Resp Effort & Inspection: normal respiratory effort, no audible wheezes, no cough and not labored Cardio Rhythm: abnormal rhythm GI Inspection: normal to inspection, distended and scar (Infraumbilical incision approximately 3 cm well-healed) Palpation: soft, No guarding, tender (Mild right lower quadrant tenderness to palpation, no evidence of rebound) and other Percussion: normal to percussion Back/Spine/Pelvis Back: normal to inspection Skin General: no rashes or lesions noted Neuro General: patient alert, patient awake and patient oriented x3 Cognition: normal cognition Speech: speech normal Extrem General: normal to inspection and full ROM Psych Appearance: grossly normal and well kempt Mental Status: mental status grossly normal Objective Imaging CT scan - abdomen: My impression: CT abdomen and pelvis with a closed loop small-bowel obstruction. There is edema surrounding the small bowel which is concerning for ischemia. Radiologist's impression: [place] [id number] CT Scan Report Signed Patient: Suri Zeng MR#: [id number] : 1945 Acct:[id number] Age/Sex: 78 / F Date of Service: 05/31/24 Loc: ED Accession Number: [id number] Procedure: CT abdomen pelvis w con Ordering Provider: Suhas Tamez MD PROCEDURE: CT ABDOMEN PELVIS W CON INDICATIONS: right side pain TECHNIQUE: After the administration of intravenous contrast, axial sections acquired from the lung bases to the pubic symphysis. Coronal and sagittal reformats were performed. For radiation dose reduction, the following was used: automated exposure control, adjustment of mA and/or kV according to patient size. COMPARISON: None. FINDINGS: Image quality: Diagnostic. Lower Chest: Mild bronchiectasis at the lung bases. There is mild streaky opacity which has the appearance of atelectasis. No pleural effusion. ABDOMEN: Liver: No solid mass. Gallbladder: No radiopaque gallstones or wall thickening. Biliary ducts: No biliary dilation. Pancreas: No ductal dilation. Spleen: Size is within normal limits. Adrenal Glands: No adrenal nodules. Kidneys and Ureters: No hydronephrosis. No solid mass. No complex renal cystic lesion which requires follow up. Stomach and Bowel: There are dilated loops of small bowel in the right lower quadrant. There is bowel wall thickening and adjacent mesenteric edema. Suspected transition point in the right lower quadrant, (3/46). There is fluid tracking in the pericolic gutter. There is trace fluid in the pelvis. There is no free air. The adjacent colon is not dilated. The appendix is partially visualized and is not dilated. There additional dilated loops of small bowel in the mid abdomen. The stomach is not dilated. The duodenum is not dilated. Diverticulosis. No diverticulitis. Peritoneum: Mild free fluid in the right abdomen and pelvis as described above. No pneumoperitoneum. Ventral Wall: No significant ventral hernia. Abdominal Nodes: No retroperitoneal or mesenteric adenopathy by size criteria. Vessels: Aorta and inferior vena cava are normal in size. PELVIS: Pelvic Organs: Anteverted uterus. Bladder: No bladder wall thickening. Pelvic Nodes: No enlarged lymph nodes. Miscellaneous: No inguinal hernias are seen. Bones: No aggressive osseous abnormality. There is anterolisthesis of L5 on S1 measuring 1.1 cm. Bilateral L5 pars defects. Scoliosis. Multilevel DDD. Mild T10 compression fracture. IMPRESSION: Small bowel obstruction with transition point suspected in the right lower quadrant. This could represent a closed loop bowel obstruction. There is mesenteric edema and free fluid. No pneumoperitoneum or abscess. Comment: Findings were discussed with Suhas Tamez at time of dictation. Dictated by: Be Artis M.D. on 05/31/2024 at 9:01 Approved by: Be Artis M.D. on 05/31/2024 at 9:16 Labs 05/31/24 07:32 05/31/24 07:32 Labs: Laboratory Results - last 24 hr 05/31/24 05/31/24 05/31/24 07:12 07:32 08:45 WBC 6.1 RBC 4.44 Hgb 13.5 Hct 39.0 MCV 87.9 MCH 30.3 MCHC 34.5 RDW 14.8 Plt Count 178 Neut % (Auto) 68.5 Lymph % (Auto) 23.6 L [place] % (Auto) 4.8 Eos % (Auto) 2.3 Baso % (Auto) 0.8 Neut # (Auto) 4200 Lymph # (Auto) 1400 [place] # (Auto) 300 Eos # (Auto) 100 Baso # (Auto) 0 PT 14.4 H INR 1.3 APTT 39 H Sodium 133 L Potassium 4.0 Chloride 99 Carbon Dioxide 25 BUN 16 Creatinine 0.68 Estimated GFR > 60 BUN/Creatinine Ratio 23.5 H Glucose 144 H Calcium 9.4 Total Bilirubin 1.2 AST 22 ALT 17 Alkaline Phosphatase 81 Total Protein 6.9 Albumin 4.4 Globulin 2.5 Albumin/Globulin Ratio 1.8 Lipase 114 Ur Bilirubin Confirm Negative [facility] Medical History Afib Central sleep apnea Congestive heart failure (CHF) Hypnotic dependence with current use Obstructive sleep apnea of adult Primary insomnia Snoring Tobacco & Substance Use Smoking Status: Never smoker Assessment & Plan Assessment and plan (1) Small bowel obstruction: Status: Acute (2) Obstructive sleep apnea of adult: Status: Chronic (3) Afib: Status: Chronic (4) Central sleep apnea: Status: Chronic Assessment & Plan narrative: This is a 78-year-old woman with a history of AFib, CHF, type 2 diabetes who presents with a closed loop small-bowel obstruction. This bowel obstruction is likely secondary to adhesive disease from patient's biopsy operation performed a proximally in [address] scan is concerning for small bowel ischemia. We will need to proceed to the operating room today for diagnostic laparoscopy, with possible exploratory laparotomy, lysis of adhesions, possible small-bowel resection. Plan: -appreciate care from patient's family medicine team. From cardiac standpoint, patient has been deemed stable and lower risk for surgical complication and cardiac risks. -NPO, IV fluids, NG tube decompression -multimodal pain control -preoperative antibiotics of Ancef/Flagyl order -patient is on full-dose anticoagulation of Eliquis. Type and screen ordered. We will need to reverse with 1 unit of FFP. We explained to the patient is higher risk of bleeding but she agrees to proceed. -endocrine: The patient is high risk for aspiration during induction in the setting of closed loop small bowel suction as well as recent use of Ozempic which can cause delayed gastric emptying. Would prefer for NG tube to be placed preoperatively. -we will hold Eliquis and plan to restart full-dose Lovenox 24 hours postoperatively. -Continue inpatient care. Patient will likely be hospitalized for 5-7 days. Time-Based Coding :: [TOTAL MINUTES] spent with patient and on the chart (including review of chart, obtaining history, exam, reviewing outside data, placing orders, documenting exam and treatment plan, and counseling patient) on [DATE]. PROFEE Charge Codes Inpatient or Observation consultation: [id number]
[2024-05-31] MEDS: METOPROLOL ER 25 MG TABLET PO (16:46)
--- NOTE | 2024-05-31 17:51 | DI.RAD.S_ITS ---
PROCEDURE: XR CHEST 1V INDICATIONS: NG placement TECHNIQUE: One view of the chest was acquired. COMPARISON: [facility], CT, CT ABDOMEN PELVIS W CON, 05/31/2024, 8:19. FINDINGS: Surgical changes and devices: Enteric tube coursing into the stomach. The tip is outside the field of view. Side port is seen in the stomach. Lungs and pleura: Streaky opacity at the left lung base. No pleural effusions or pneumothorax. Mediastinum: Mediastinal contours appear normal. Heart size is prominent. Bones and chest wall: No suspicious bony lesions. Overlying soft tissues appear unremarkable. IMPRESSION: Enteric tube in the stomach. Streaky opacity at the left lung base. Suspect atelectasis. Dictated by: Be Artis M.D. on 05/31/2024 at 19:49 Approved by: Be Artis M.D. on 05/31/2024 at 19:51
[2024-05-31] MEDS: CEFAZOLIN 2 GM/100 ML PREMIX 100 ML IV (18:39)
[2024-05-31] MEDS: metroNIDAZOLE 500 MG/100 ML PIGGYBACK 100 MG IV (19:11)
[2024-05-31] MEDS: LACTATED RINGERS 1,000 ML 42 ML IV (19:22)
[2024-05-31] MEDS: BUPIVACAINE 0.25% (PF) VIAL 30 ML INJ ×2 (20:06→20:07)
[2024-05-31] MEDS: ACETAMINOPHEN IV 1,000 MG/100 ML VIAL 400 MG IV (21:29)
--- NOTE | 2024-05-31 21:37 | P.OP_ITS ---
Operative Date/Time/Diagnoses Date of procedure: 05/31/24 Time of procedure: 21:37 Pre-op diagnosis: Closed loop small bowel obstruction Post-op diagnosis: same Procedure & Clinicians Procedure: 1. Diagnostic laparoscopy 2. Laparoscopic lysis of Adhesions 3. Laparoscopic closure of internal hernia Same procedure as scheduled: No Indications: This is a 78-year-old woman with multiple comorbidities including hypertension, CHF, AFib on anticoagulation who presented to the hospital with acute onset of right lower quadrant abdominal pain. Patient had a history of a surgical biopsy intra-abdominal and the left lower quadrant approximately [address] scan demonstrated closed loop small bowel obstruction. ParQ was held patient agreed to proceed with diagnostic laparoscopy possible exploratory laparotomy. Surgeon: Rebeka Fischer Click Yes if Unassisted: No Anesthesia Type: General Operative Notes Findings: Patient was found to have a mesenteric defect involving the cecum where the ileum had herniated through this internal hernia and caused a closed loop small bowel obstruction. The small bowel appeared to be slightly ischemic upon entering the abdomen. After reduction of the small bowel, all small bowel appeared to be viable and hyperemic consistent with previous obstruction. Closure Type: primary Specimen(s): none sent Applied: catheter Estimated Blood Loss (mL): 30 Blood products transfused: fresh frozen plasma (1 unit of FFP) Procedure in detail: The patient was brought to the operating room and placed supine on operating room table. General endotracheal anesthesia was induced. The patient had Liu catheter inserted. The abdomen was prepped and draped in the usual sterile fashion. A routine time-out was performed which confirmed the patient, procedure, preoperative antibiotics were administered and all team members were in agreement. Of note the patient was on Eliquis prior to presenting to the operating room. Patient was transfused with 1 unit of FFP. At paramus's point, a Veress needle was inserted into the abdominal cavity. A saline drop test was performed which confirmed the intra-abdominal location of the needle. The patient's abdomen was insufflated to a pressure of 15 mmHg. Patient tolerated insufflation without incident. We then proceeded with placing a left supra umbilical 5 mm trocar. The patient's abdomen was entered using the Optiview technique. There was no injury incurred by entering via this manner. The Veress needle was verified to be intra-abdominal and no underlying injury was incurred. We then proceeded with placing 2 additional trocars. There was a 5 mm trocar placed in the left lower quadrant and a initially a 5 mm trocar was inserted into the left mid abdomen. This was upgraded to a 12 mm trocar was inserted into the left mid abdomen. Upon initial inspection of the abdomen, the patient was found to have a closed loop small-bowel obstruction in the right lower quadrant. Initially it was difficult to discern how the small bowel was lateral to the cecum. Upon closer inspection, a mesenteric defect was identified there were anterior adhesions of the cecum to the right colic gutter. Using the endo Sony, these adhesions were transected. After lysing these adhesions, the small bowel was able to move freely through the mesenteric defect. The small bowel was reduced out of the mesenteric defect. This mesenteric defects was then closed with a 3-0 Stratafix suture. The Stratafix suture was secured to the base of the mesenteric defect and ran towards the cecum. No needle injury was incurred during the closure of this and we made sure that the appendix was not involved in the closure. Unfortunately after closing the mesenteric defect, it was discovered that the Stratafix was a Monocryl suture instead of a permanent suture. The suture was left in place. Patient has slight amount of blood in the pelvis from the lysis of adhesions. Sectioning irrigated was used to suction and remove all hemorrhagic fluid. This was minimal in nature less than 30 mL. The small bowel was ran from the fold of Treves to the ligament of Treitz. The small bowel that was involved in the closed loop small bowel obstruction appeared to be viable and there was the beginnings of peristalsis of this bowel. None of the bowel appeared to be ischemic. There was small amount of fluid above the liver on the right hepatic lobe. A suction vertical lathe operator was used to suction this fluid out. We then proceeded with closing the 12 mm trocar using a 0 Vicryl suture and the Bob- Sarah suture Passer. Lastly the pneumoperitoneum was evacuated and all trocars were removed. The 12 mm trocar fascia was closed. Patient was anesthetized before incisions and after incisions with a total of 60 mL of 0.25% Marcaine. All trocar sites were closed using 4-0 Vicryl suture. Skin incisions were dressed with Dermabond. I was present scrubbed for the entirety of the operation. The patient tolerated the procedure well and was subsequently transferred to PACU in stable condition. During the operation, all needles, sponge, instrument counts were correct. Complications: none Post-operative Condition: stable Disposition: PACU
--- NOTE | 2024-05-31 22:12 | PC.NURSE ---
Addendum entered by Rose Marie Perez R.N. 05/31/24 22:27: Patient A/O x 4, NG tube running at low intermittent suction. Denies pain. Original Note: Patient back from PACU at 2205
[2024-05-31] MEDS: HYDROMORPHONE 0.5 MG INJ IV (23:10)
[2024-06-01] VITALS (7 sets, daily range): BP systolic 98–111; BP diastolic 52–74; PULSE 61–79; RESP 12–18; TEMP 35.8–36.1; O2SAT 91–97
[2024-06-01] MEDS: ACETAMINOPHEN IV 1,000 MG/100 ML VIAL 400 MG IV ×3 (03:09→16:35)
[2024-06-01] MEDS: DEXTROSE 5%-0.45% NS 1,000 ML 100 ML IV (03:09)
[2024-06-01] MEDS: metroNIDAZOLE 500 MG/100 ML PIGGYBACK 100 MG IV ×3 (03:28→21:10)
[2024-06-01 05:28] LABS: Add Manual Diff / Slide Review NO; Basophils Absolute Auto 0 /uL (0-100); Basophils Percent Auto 0.2 % (0-2); Eosinophils Absolute Auto 0 /uL (0-450); Hematocrit 33.4 % (36-46); Hemoglobin 11.6 g/dL (12.0-16.0); Lymphocytes Absolute Auto 1100 /uL (1100-4500); Lymphocytes Percent Auto 15.5 % (25-40); Mean Corpuscular HGB Conc 34.8 % (30-36); Mean Corpuscular Hemoglobin 30.8 PG (26-34); Mean Corpuscular Volume 88.6 fL (80-100); Monocytes Absolute Auto 500 /uL (0-900); Monocytes Percent Auto 7.4 % (3-14); Neutrophils Absolute Auto 5400 /uL (1500-7000); Neutrophils Percent Auto 76.9 % (50-75); Platelet Count 153 X10^3/uL (150-400); Red Blood Cell Count 3.77 X10^6/uL (4.0-5.2)
[2024-06-01 05:29] LABS: Alanine Aminotransferase 17 IU/L (<35); Albumin 3.5 g/dL (3.5-5.0); Albumin Globulin Ratio 1.5 (1.0-2.8); Alkaline Phosphatase 60 U/L (38-126); Aspartate Aminotransferase 25 IU/L (14-36); BUN Creatinine Ratio 23.5 (6-22); Bilirubin Total 1.1 mg/dL (0.2-1.3); Blood Urea Nitrogen 16 mg/dL (7-17); Calcium 8.6 mg/dL (8.4-10.2); Carbon Dioxide 24 mmol/L (22-32); Chloride 102 mmol/L (98-107); Estimated Glomerular Filt Rate > 60 mL/min (>60); Globulin 2.3 g/dL (1.7-4.1); Glucose 162 mg/dL (80-110); HEMOLYSIS < 15 (0-50); Potassium 4.2 mmol/L (3.4-5.1); Sodium 134 mmol/L (137-145); Total Protein 5.8 g/dL (6.3-8.2)
[2024-06-01] MEDS: cefTRIAXone 2,000 MG in SODIUM CHLORIDE 0.9% 100 ML 200 MG IV (09:13)
[2024-06-01] MEDS: KETOROLAC 30 MG/ML VIAL 15 MG IV ×2 (09:14→22:28)
[2024-06-01] MEDS: ONDANSETRON 4 MG/2 ML INJ IV (09:14)
[2024-06-01] MEDS: HYDROMORPHONE 0.5 MG INJ IV (09:14)
[2024-06-01] MEDS: METOPROLOL ER 25 MG TABLET PO (12:58)
--- NOTE | 2024-06-01 13:11 | CM.DANOTE ---
DCP Assessment Note: Pt is a 78yo female, resident of [place], is admitted for a small bowel obstruction and is s/p Pt lives in a house alone with her two cats, has a lot of local friends who are able to support if necessary. Pt's Primary Care Provider is Dr. Matthew Trotter and insurance is Medicare and BCBS Out of [facility]. Reviewed chart and discussed with multidisciplinary team pt's medical status and initial discharge needs. Per rounds, pt is advancing diet and should dc home when cleared. DCP met w/patient at bedside; introduced self and role. Present is pt friend, Carleen Howe ph# [phone] (pt requests this friend be added to her chart). Patient was found in bed, alert and oriented, cooperative with assessment. Pt confirmed living situation, independent with ADLs at baseline and good support in local friends. Pt expressed preference in dc home when cleared, no previous hx of home health in [place] and does not anticipate need for it at this time. Plan: Anticipating dc home when medically cleared with friend, Carleen or Suri, to transport. CM team will follow closely for coordination of discharge plans. Chely Tidwell [facility] Discharge Planning/Care Management CM Discharge Assessment Start: 06/01/24 12:58 Freq: Status: Active Protocol: Document 06/01/24 12:59 MW (Rec: 06/01/24 13:11 MW [id number]) Discharge Planning Assessment Assigned [employer] BRISSA Mo DPOA/Assigned Designee Name Kiana Miller Contact Information [phone] Advance Directives? No History Provided By Patient,Family Member,Medical Record Has Patient been admitted in last 30 No days? Prior Living Arrangements House Comment [place] Household Members none Comment 2 cats - Biscuit and Shonna. Type of transporation used prior to Drives own vehicle admit Independent with ADL's Yes Is patient alert and oriented? Yes Caregiver for Another No DME Already Rented / Owned Cane Comment Not used consistently Patient/Family Preference Home with Home Health Barriers to Discharge No Discharge Plan Home Referrals Initiated None needed Whiteboard Updated in Patient Room with Yes name and ext. # of [employer] Comment [phone] Review Status In Process Please Provide Date Initial DC 06/01/24 Assessment Was Performed Next Review Type Continued Stay Review
--- NOTE | 2024-06-01 14:32 | P.PN_ITS ---
Subjective Subjective Date Patient Seen: 06/01/24 Time Patient Seen: 08:30 Interval history: CC: small bowel obstruction She is feeling much better today still in pain but not like it was yesterday. Appreciative of surgery not so much of Dobhoff. She endorses one passing flatus. Exam Vital Signs (past 8 hours): - 06/01/24 08:00 06/01/24 12:00 Temperature 97.0 F L 96.7 F L Pulse Rate 63 64 Respiratory Rate 12 18 Blood Pressure 101/55 L 102/74 Pulse Oximetry 97 94 Oxygen Flow Rate 0 0 Oxygen Delivery Method Room Air Oxygen Flow Rate 0 Narrative Exam Narrative: resting in bed with dressings postop HENMT Other: Dobhoff in place Resp Other: clear to auscultation bilaterally Cardio Other: regular rate s1/s2 no pedal edema GI Other: incisions under dry dressing Other: palafox draining clearish yellow Neuro Other: alert awake oriented moving all limbs equally Objective Labs 06/01/24 04:30 06/01/24 04:30 Labs: Laboratory Results - last 24 hr 05/31/24 06/01/24 17:15 04:30 WBC 7.0 RBC 3.77 L Hgb 11.6 L Hct 33.4 L MCV 88.6 MCH 30.8 MCHC 34.8 RDW 15.0 H Plt Count 153 Neut % (Auto) 76.9 H Lymph % (Auto) 15.5 L [place] % (Auto) 7.4 Eos % (Auto) 0.0 L Baso % (Auto) 0.2 Neut # (Auto) 5400 Lymph # (Auto) 1100 [place] # (Auto) 500 Eos # (Auto) 0 Baso # (Auto) 0 Sodium 134 L Potassium 4.2 Chloride 102 Carbon Dioxide 24 BUN 16 Creatinine 0.68 Estimated GFR > 60 BUN/Creatinine Ratio 23.5 H Glucose 162 H Calcium 8.6 Total Bilirubin 1.1 AST 25 ALT 17 Alkaline Phosphatase 60 Total Protein 5.8 L Albumin 3.5 Globulin 2.3 Albumin/Globulin Ratio 1.5 Blood Type O Positive Antibody Screen Negative PFSH Medical History Afib Central sleep apnea Congestive heart failure (CHF) Hypnotic dependence with current use Obstructive sleep apnea of adult Primary insomnia Snoring Social History household members: none Smoking Status: Never smoker Assessment & Plan Assessment & Plan narrative: #SBO #s/p bowel resection Feeling MUCH better - following along with surgery - encourage mobilization as tolerated to chair per surgery will look to d/c Dobhoff if possible and start eating - passing flatus is good sign. #atrial fibrillation #CHF #Hypertension #GERD #NIDDM stable continue home regimens now she is on PO again Eliquis resumption per surgery Dispo: POD #1 s/p resection inpatient status work with PT/OT PCP: Rose Marie Diet: per surgery MDM: friend Jessica Code: Powdered Sugar Supervisor-Based Coding :: [TOTAL MINUTES] spent with patient and on the chart (including review of chart, obtaining history, exam, reviewing outside data, placing orders, documenting exam and treatment plan, and counseling patient) on [DATE].
[2024-06-02 00:15] VITALS: BP 118/68; PULSE 60; RESP 18; TEMP 36.1; O2SAT 97
--- NOTE | 2024-06-02 03:08 | P.PN_ITS ---
Subjective Subjective Date Patient Seen: 06/01/24 Time Patient Seen: 08:49 Interval history: Late Entry Note for 06/01/2024. No acute events overnight. Pain is better post operatively. Still distended this am but improved. Passing flatus. Small liquid BM. Exam Vital Signs (past 8 hours): - 06/01/24 20:00 06/01/24 20:53 06/02/24 00:15 Temperature 96.6 F L 97.0 F L Pulse Rate 61 69 60 Respiratory Rate 18 18 Blood Pressure 101/52 L 111/65 118/68 Pulse Oximetry 96 97 Oxygen Flow Rate 0 0 Oxygen Delivery Method Room Air Oxygen Flow Rate 0 Narrative Exam Narrative: Gen: NAD, well nourished HEENT: NG in place with minimal output. This was removed Resp: No labored breathing or respiratory distress CVS: no chest pain GI: soft, distended, appropriately TTP, incisions are c/d/i with minimal ecchymoses : palafox in place Ext: no edema noted Neuro: AO x 3 Objective Labs 06/01/24 04:30 06/01/24 04:30 Labs: Laboratory Results - last 24 hr 06/01/24 04:30 WBC 7.0 RBC 3.77 L Hgb 11.6 L Hct 33.4 L MCV 88.6 MCH 30.8 MCHC 34.8 RDW 15.0 H Plt Count 153 Neut % (Auto) 76.9 H Lymph % (Auto) 15.5 L Faulkner % (Auto) 7.4 Eos % (Auto) 0.0 L Baso % (Auto) 0.2 Neut # (Auto) 5400 Lymph # (Auto) 1100 Faulkner # (Auto) 500 Eos # (Auto) 0 Baso # (Auto) 0 Sodium 134 L Potassium 4.2 Chloride 102 Carbon Dioxide 24 BUN 16 Creatinine 0.68 Estimated GFR > 60 BUN/Creatinine Ratio 23.5 H Glucose 162 H Calcium 8.6 Total Bilirubin 1.1 AST 25 ALT 17 Alkaline Phosphatase 60 Total Protein 5.8 L Albumin 3.5 Globulin 2.3 Albumin/Globulin Ratio 1.5 PFSH Medical History Afib Central sleep apnea Congestive heart failure (CHF) Hypnotic dependence with current use Obstructive sleep apnea of adult Primary insomnia Snoring Social History household members: none Smoking Status: Never smoker Assessment & Plan Assessment and plan (1) Small bowel obstruction: Status: Acute (2) Obstructive sleep apnea of adult: Status: Chronic (3) Afib: Status: Chronic Assessment & Plan narrative: This is a 78 yo W POD#1 s/p laparoscopic lysis of adhesions, closure of internal hernia for closed loop small bowel obstruction - NG removed and advance to clears - remove palafox - Replace electrolytes PRN - Multimodal pain control - Resume anticoagulation via Lovenox on 06/02 - Monitor glucoses and continue SSI - Continue inpatient care Time-Based Coding :: [TOTAL MINUTES] spent with patient and on the chart (including review of chart, obtaining history, exam, reviewing outside data, placing orders, documenting exam and treatment plan, and counseling patient) on [DATE]. PROFEE Armature Rewinder Document charge(s): Yes Charge Codes Subsequent inpatient/observation care: [id number]
[2024-06-02] MEDS: ACETAMINOPHEN IV 1,000 MG/100 ML VIAL 400 MG IV (04:08)
[2024-06-02] MEDS: DEXTROSE 5%-0.45% NS 1,000 ML 75 ML IV (04:13)
[2024-06-02 05:05] VITALS: BP 111/64; PULSE 74; RESP 16; TEMP 36.3; O2SAT 95
[2024-06-02 05:37] LABS: Add Manual Diff / Slide Review NO; Basophils Absolute Auto 100 /uL (0-100); Basophils Percent Auto 1.2 % (0-2); Eosinophils Absolute Auto 400 /uL (0-450); Eosinophils Percent Auto 6.1 % (2-4); Hematocrit 32.5 % (36-46); Hemoglobin 11.3 g/dL (12.0-16.0); Lymphocytes Absolute Auto 2700 /uL (1100-4500); Lymphocytes Percent Auto 44.5 % (25-40); Mean Corpuscular HGB Conc 34.7 % (30-36); Mean Corpuscular Hemoglobin 30.8 PG (26-34); Mean Corpuscular Volume 88.8 fL (80-100); Monocytes Absolute Auto 500 /uL (0-900); Monocytes Percent Auto 8.4 % (3-14); Neutrophils Absolute Auto 2400 /uL (1500-7000); Neutrophils Percent Auto 39.8 % (50-75); Platelet Count 152 X10^3/uL (150-400); Red Blood Cell Count 3.67 X10^6/uL (4.0-5.2); Red Cell Distribution Width 15.2 % (11.6-14.8)
[2024-06-02 05:58] LABS: Alanine Aminotransferase 16 IU/L (<35); Albumin 3.5 g/dL (3.5-5.0); Albumin Globulin Ratio 1.5 (1.0-2.8); Alkaline Phosphatase 63 U/L (38-126); Aspartate Aminotransferase 28 IU/L (14-36); BUN Creatinine Ratio 22.4 (6-22); Bilirubin Total 1.3 mg/dL (0.2-1.3); Blood Urea Nitrogen 15 mg/dL (7-17); Calcium 8.7 mg/dL (8.4-10.2); Carbon Dioxide 22 mmol/L (22-32); Chloride 102 mmol/L (98-107); Estimated Glomerular Filt Rate > 60 mL/min (>60); Globulin 2.4 g/dL (1.7-4.1); Glucose 121 mg/dL (80-110); HEMOLYSIS < 15 (0-50); Magnesium 1.9 mg/dL (1.6-2.3); Potassium 3.6 mmol/L (3.4-5.1); Sodium 131 mmol/L (137-145); Total Protein 5.9 g/dL (6.3-8.2)
--- NOTE | 2024-06-02 07:43 | ED.CONSULT ---
ED Provider Consult/Code Note General Date Patient Seen: 06/02/24 Time Patient Seen: 05:00 Reason for Admission: Severe stomach pain Events leading to Consult/Code: I was called to the bedside after code blue was called in the upstairs obvious unit, nursing staff states the patient was speaking and then went into V-tach on monitor became unresponsive. Cardiac Rhythm: Initial rhythm was V-tach Additional: initial synchronized cardioversion resulted in sinus for several beats prior to decompensating into VFib, patient required multiple defibrillation shocks as well which would result in alternation between sinus rhythm for several beats potential polymorphic V-tach occasionally. Respiratory Auscultation: clear to auscultation bilaterally ET Tube Size: 7.5 Tube Secured Depth (cm): 25 Tube Secured Location: teeth Tube Placement Confirmation: Visualized tube passing through cords and Equal breath sounds bilaterally Care Provided Description of care provided: I was called to the bedside of the patient the was called to a code blue in the observation unit upon arrival patient had been down for 4-5 minutes after witnessed arrest no active CPR upon arrival, pads placed on patient code cart brought to the bedside compressions began initial rhythm found to be V-tach. Initial shock in the anterior-posterior at 200 joules with synchronized cardioversion results in sinus rhythm for several beats prior to decompensation into VFib. Compressions resumed, begin ACLS medications including amiodarone epinephrine during pulse checks. Patient received multiple defibrillations with intermittent conversion to V-tach, sinus and polymorphic V-tach, patient received bicarbonate magnesium in order to help with potential acidosis causing abnormalities or torsades de Pointe with no significant improvement. Patient intubated during resuscitation visualized to pass through the cords with 1st pass success, no medications used given active code. After approximately 35-40 minutes of resuscitation, multiple shocks and multiple rounds of ACLS medication including epinephrine, amiodarone, lidocaine, bicarb, magnesium no significant return of spontaneous circulation, time of called and primary team notified of overnight cardiac event that we were unfortunately unable to obtain ROSC on. Outcome Outcome: Ultimately resuscitation was discontinued given poor prognosis, no significant improvement despite multiple attempts to obtain ROSC.
--- NOTE | 2024-06-02 07:58 | PC.NURSE ---
0505 pt awake, alert,oriented x4, discussed with pt orders to remove palafox, pt verbalized understanding, palafox cath removed without issues, tolerated well by pt. 0511 While in the room, PHYSICAL CHEMISTRY TEACHER notified this staff regarding vtach event noted on tele. pt remains alert,conversant, denies any Chest pain,discomfort, SOB or any s/sx. see flowsheets for vitals. EKG and labs ordered, RT and lab personnel notified and at bedside. 0526 alerted by lalito blue activated by RT who is at bedside and noted pt becoming unresponsive. code team and provider at bedside, CPR initiated. Primary provider paged, spoke to Dr. Larson and updated regarding events. ED provider pronounced time of , pt's primary contacts Carleen Howe and Palmira Richardson notified at 0618 and 0622.
--- NOTE | 2024-06-02 14:31 | PC.NURSE ---
1045: Donor eligibilty inquiry initiated by [facility] night shift manager Refugio Goldsmith. 1111: [facility] and case was identified as non report[facility]. No further action required. [facility] home contacted, place of choice by both friends of patient Suri and Jessica. 1017: Jessica Red at bedside, retrieved patients belongings.
--- NOTE | 2024-06-24 14:47 | PM.DS.1 ---
History of Present Illness History of Present Illness Date Patient Seen: 06/02/24 Chief complaint: Severe stomach pain Narrative: CC: SBO This is a discharge summary filed after the patient's . I did not see the patient on the date of but it appears surgery did early in the morning. It appears that in the morning of 06/02/2024 she had a cardiac arrest and unfortunately resuscitative efforts were unsuccessful. Please see Code Blue documentation for further notes on events of this day. Discharge Providers Provider Date of admission: 05/31/24 09:22 Discharge Date: 06/02/24 Primary care physician: Matthew Trotter MD Consults: 05/31/24 11:03 Consult to General Surgery Routine Comment: Consulting Provider: [facility] Reason for consultation: SBO Has provider been notified: Yes Discharge provider: Kenny Emery MD Summary Hospital Course Discharge Diagnosis: #Cardiac arrest #closed loop SBO with mesenteric defect #atrial fibrillation #CHF #Hypertension #GERD #NIDDM Hospital Course: Pt with new sudden symptoms of epigastric bandlike pain and soreness in RLQ presented to ED evaluated by surgery who diagnosed SBO and kept NPO initially with morphine for pain control. General surgeon Dr. Fischer took her to OR for laparoscopy see op notes for more detail, SBo d/t mesenteric defect was resolved, resection was not necessary and the patient felt much better the next day. She was mobilizing passing flatus and advancing diet by the morning of POD #2 when she unfortunately suffered a cardiac arrest and . Status at Discharge Overall status at discharge: other Exam Vital Signs (past 8 hours): Oxygen Delivery Method Room Air Oxygen Flow Rate 0 Narrative Exam Narrative: I did not see the patient alive on this day Objective Labs 06/02/24 05:10 06/02/24 05:10 [facility] Medical History Afib Central sleep apnea Congestive heart failure (CHF) Hypnotic dependence with current use Obstructive sleep apnea of adult Primary insomnia Snoring Social History household members: none Smoking Status: Never smoker Discharge Assessment & Plan Assessment and Plan Assessment: #Cardiac arrest Exact cause of patient's demise difficult to asses however she was recently postop and had multiple comorbidities as noted below. #closed loop SBO with mesenteric defect s/p laparoscopic repair by surgery POD #2 #atrial fibrillation #CHF #Hypertension #GERD #NIDDM Home diagnoses - plan had been to resume anticoagulants today. Dispo: PCP: Rose Marie MDM: friend Jessica Code: Full Discharge Plan Discharge Plan Patient Disposition: Discharge Data Primary Care Provider: Matthew Trotter
== END 2024-06-02 09:55 | disposition expired | DRG 357 ==
LOC: ED 09:19 → AC 09:40
PROVIDERS: Surgery; Admitting Provider Family Medicine; Emergency Provider Emergency Medicine; Family Provider Family Medicine; PCP Family Medicine; Referring Provider Emergency Medicine; Visit Provider Family Medicine
PROC: 0DQV4ZZ Repair Mesentery, Percutaneous Endoscopic Approach (ICD-10-PCS; CPT 49320; principal; 2024-05-31 16:30)
DX: K56.50 Intestinal adhesions [bands], unspecified as to partial versus complete obstruction (principal); I47.20 Ventricular tachycardia, unspecified; K55.9 Vascular disorder of intestine, unspecified; I46.9 Cardiac arrest, cause unspecified; I49.01 Ventricular fibrillation; E11.9 Type 2 diabetes mellitus without complications; I48.91 Unspecified atrial fibrillation; E78.5 Hyperlipidemia, unspecified; G47.00 Insomnia, unspecified; K21.9 Gastro-esophageal reflux disease without esophagitis; G47.33 Obstructive sleep apnea (adult) (pediatric); I50.9 Heart failure, unspecified; I11.0 Hypertensive heart disease with heart failure; Z79.01 Long term (current) use of anticoagulants; Z79.84 Long term (current) use of oral hypoglycemic drugs; Z79.85 Long-term (current) use of injectable non-insulin antidiabetic drugs
CPT/HCPCS: 36415; 36430; 36591; 71045; 74177; 80053; 81003; 82962; 83690; 83735; 85025; 85610; 85730; 86850; 86900; 86901; 86927; 93005; 96374; 96375; 99284; P9016; J0134; J0330; J0690; J0696; J1100; J1171; J1885; J2270; J2405; J2704; J3010; Q9967